=== PATIENT | female | born 1970 | race Caucasian/White ===

== ENCOUNTER 2019-01-26 06:17 | Inpatient (IN) | payer OTHER ==
[~2019-01-26 06:17] MED LIST: CEFAZOLIN 2 GM/50 ML (PMX) 50 ML IVPB
[2019-01-26] MEDS ORDERED: hydrALAzine 20 MG INJ IV ×2 (07:30→10:30)
[2019-01-26] MEDS ORDERED: TRIMETHOBENZAMIDE 100 MG/ML VIAL IM ×3 (07:30→10:30)
[2019-01-26] MEDS ORDERED: ZOLPIDEM 5 MG TAB PO ×2 (07:30→10:30)
[2019-01-26] MEDS ORDERED: EPHEDrine SULFATE 50 MG/5 ML SYG IV ×2 (07:30→10:30)
[2019-01-26] MEDS ORDERED: IPRATROPIUM (NEB) 0.5 MG/2.5 ML AMP HHN ×2 (07:30→10:30)
[2019-01-26] MEDS ORDERED: DIPHENHYDRAMINE 50 MG INJ IV ×3 (07:30→10:30)
[2019-01-26] MEDS ORDERED: PROPOFOL 20 ML (07:30)
[2019-01-26] MEDS ORDERED: ONDANSETRON 4 MG INJ IV ×3 (07:30→10:30)
[2019-01-26] MEDS ORDERED: MIDAZOLAM 1 MG/ML 2 ML INJ IV ×2 (07:30→10:30)
[2019-01-26] MEDS ORDERED: ROCURONIUM 50 MG INJ (07:30)
[2019-01-26] MEDS ORDERED: KETOROLAC 30 MG INJ IV (07:30)
[2019-01-26] MEDS ORDERED: ALBUTEROL 0.083% (NEB) 2.5 MG/3 ML AMP HHN ×2 (07:30→10:30)
[2019-01-26] MEDS ORDERED: MEPERIDINE 25 MG INJ IV ×2 (07:30→10:30)
[2019-01-26] MEDS ORDERED: NALBUPHINE HCL (10 MG/1 ML) INJ IV (07:30)
[2019-01-26] MEDS ORDERED: LABETALOL HCL 20MG INJ IV ×2 (07:30→10:30)
[2019-01-26] MEDS ORDERED: GLYCOPYRROLATE 0.4 MG INJ (07:30)
[2019-01-26] MEDS ORDERED: NALOXONE (0.4 MG/ML) INJ IV (07:30)
[2019-01-26] MEDS ORDERED: HYDROmorphONE 1 MG/5 ML IV SYRINGE IV ×5 (07:30→10:30)
[2019-01-26] MEDS ORDERED: morphine 2 MG INJ IV ×2 (07:30)
[2019-01-26] MEDS ORDERED: CEFAZOLIN 1 GM INJ (07:30)
[2019-01-26] MEDS ORDERED: FENTAnyl 50 MCG/ML VIAL IV ×6 (07:30→10:30)
[2019-01-26] MEDS ORDERED: ONDANSETRON 4 MG INJ (07:34)
[2019-01-26] MEDS ORDERED: DEXAMETHASONE 4 MG/ML 5 ML INJ (07:34)
[2019-01-26] MEDS ORDERED: FENTAnyl 50 MCG/ML VIAL (07:34)
[2019-01-26] MEDS ORDERED: morphine SULFATE/PF (10 MG/10 ML) INJ (07:34)
[2019-01-26] MEDS ORDERED: MIDAZOLAM 1 MG/ML 2 ML INJ (07:34)
[2019-01-26] MEDS ORDERED: SUGAMMADEX SODIUM 200 MG/2 ML VIAL IV (09:46)
[2019-01-26] MEDS: HYDROmorphONE 1 MG/5 ML IV SYRINGE IV (10:24)
[2019-01-26] MEDS ORDERED: DIPHENHYDRAMINE 50 MG CAP PO (10:30)
[2019-01-26] MEDS: KETOROLAC 30 MG INJ IV ×2 (11:59→18:02)
[2019-01-26] MEDS: METOCLOPRAMIDE 10 MG TAB PO ×2 (11:59→18:02)
[2019-01-26] MEDS: LACTATED RINGER'S 1,000 ML IV ×2 (12:00→20:11)
[2019-01-26] MEDS: CEFAZOLIN 1 GM/50 ML (PMX) 50 ML IVPB ×2 (14:41→21:18)
[2019-01-26] MEDS: ENOXAPARIN 30 MG/0.3 ML SYG SC (21:21)
[2019-01-27] MEDS: ONDANSETRON INJ 6 MG in DEXTROSE 5% 50 ML IVPB (02:30)
[2019-01-27] MEDS: LACTATED RINGER'S 1,000 ML IV ×2 (04:18→10:04)
[2019-01-27 05:14] LABS: ADD MAN DIFF? NO
[2019-01-27 05:16] LABS: EOSINOPHILS % 0.2 % (0.0-7.0); HEMATOCRIT 26.1 % (37.0-47.0); LYMPHOCYTES # 1.1 10^3/ul (0.8-2.9); LYMPHOCYTES % 8.2 % (15.0-51.0); MEAN CORPUSCULAR HEMOGLOBIN 24.3 pg (29.0-33.0); MEAN CORPUSCULAR HGB CONC 30.7 g/dl (32.0-37.0); MEAN CORPUSCULAR VOLUME 79.3 fl (82.0-101.0); MEAN PLATELET VOLUME 9.3 fl (7.4-10.4); MONOCYTE # 1.4 10^3/ul (0.3-0.9); MONOCYTES % 10.6 % (0.0-11.0); NEUTROPHIL # 10.6 10^3/ul (1.6-7.5); NEUTROPHILS % 80.4 % (39.0-77.0); PLATELET COUNT 412 10^3/UL (140-415); RED BLOOD COUNT 3.29 10^6/ul (4.20-5.40)
[2019-01-27 05:16] LABS: WHITE BLOOD COUNT 13.1 10^3/ul (4.8-10.8)
[2019-01-27] MEDS: CEFAZOLIN 1 GM/50 ML (PMX) 50 ML IVPB (05:34)
[2019-01-27] MEDS: KETOROLAC 30 MG INJ IV ×4 (05:36→17:51)
[2019-01-27] MEDS: METOCLOPRAMIDE 10 MG TAB PO ×5 (05:36→23:09)
[2019-01-27 05:42] LABS: ANION GAP 7 (5-13); BLOOD UREA NITROGEN 8 mg/dl (7-20); CALCIUM 8.6 mg/dl (8.4-10.2); CARBON DIOXIDE 28 mmol/L (21-31); CHLORIDE 103 mmol/L (97-110); CREATININE 0.54 mg/dl (0.44-1.00); Estimated GFR > 60 mL/min (>60); GLUCOSE 106 mg/dl (70-220); POTASSIUM 4.3 mmol/L (3.5-5.1); SODIUM 138 mmol/L (135-144)
[2019-01-27] MEDS: ENOXAPARIN 30 MG/0.3 ML SYG SC ×2 (11:02→23:09)
[2019-01-27] MEDS: traMADol 50 MG TAB GTB (18:16)
[2019-01-27] MEDS: CEPASTAT LOZENGE MT (19:14)
[2019-01-27] MEDS ORDERED: traMADol 50 MG TAB PO ×2 (20:00→22:30)
[2019-01-27] MEDS: oxyCODONE 15 MG TAB PO (20:02)
[2019-01-28] MEDS: oxyCODONE 15 MG TAB PO ×2 (02:02→08:03)
[2019-01-28] MEDS: METOCLOPRAMIDE 10 MG TAB PO ×3 (06:00→15:40)
[2019-01-28] MEDS: ENOXAPARIN 30 MG/0.3 ML SYG SC ×2 (08:19→20:57)
[2019-01-28] MEDS: BISACODYL (EC) 5 MG TAB PO (10:11)
[2019-01-28] MEDS: SOD FERRIC GLUC COMPLX 125 MG in SOD CHLORIDE 0.9% 100 ML IVPB (12:48)
[2019-01-28] MEDS: KETOROLAC 30 MG INJ IV ×2 (12:49→18:52)
[2019-01-29] MEDS: oxyCODONE 15 MG TAB PO
[2019-01-29] MEDS: KETOROLAC 30 MG INJ IV ×2 (00:59→07:49)
[2019-01-29] MEDS: METOCLOPRAMIDE 10 MG TAB PO ×2 (07:49)
[2019-01-29] MEDS: ENOXAPARIN 30 MG/0.3 ML SYG SC (09:02)
== END 2019-01-29 11:55 | disposition home or self-care (01) | DRG 743 ==
LOC: REC 06:17 → MS1 11:19
PROC: 0UT90ZZ Resection of Uterus, Open Approach (ICD-10-PCS; principal; 2019-01-26 07:27)
PROC: 0UB70ZZ Excision of Bilateral Fallopian Tubes, Open Approach (ICD-10-PCS; 2019-01-26 07:27)
DX: D25.9 Leiomyoma of uterus, unspecified (principal); E66.01 Morbid (severe) obesity due to excess calories; D63.8 Anemia in other chronic diseases classified elsewhere; E78.5 Hyperlipidemia, unspecified; F17.200 Nicotine dependence, unspecified, uncomplicated; M54.9 Dorsalgia, unspecified; N92.1 Excessive and frequent menstruation with irregular cycle; R73.03 Prediabetes; Z68.39 Body mass index [BMI] 39.0-39.9, adult; Z71.3 Dietary counseling and surveillance
CPT/HCPCS: 80048; 85025; 86850; 86900; 86901; 86920; 87086; 88305